=== PATIENT | female | born 1990 | race Caucasian/White ===

== ENCOUNTER 2020-05-31 16:37 | Emergency (ER) | payer OTHER ==
[~2020-05-31] VITALS: Ht 154.9 cm; Wt 86.2 kg
[2020-05-31 16:43] VITALS: BP_SYST 128
--- NOTE | 2020-05-31 17:20 | NUR ---
Patient to ER bed 5 to gown for evaluation. Side rails up. Report given to SALONI VOGT.
--- NOTE | 2020-05-31 17:22 | NUR ---
Patient presented to ER C/O shoulder pain. Patient A&Ox4, ambulatory, afebrile, skin pink & warm, pain 8/, denies N/V/D. Patient states she has left shoulder pain x3 weeks.
--- NOTE | 2020-05-31 17:25 | NUR ---
ER Dr. BOWIE at bedside examining patient.
[2020-05-31 18:00] VITALS: BP_SYST 129
--- NOTE | 2020-05-31 18:00 | NUR ---
Patient given written and verbal discharge instructions and verbalizes understanding. ER MD discussed with patient the results and treatment provided. Patient in stable condition. ID arm band removed. Rx of ROBAXIN & MOTRIN given. Patient educated on pain management and to follow up with PMD. Pain Scale 3/10. Opportunity for questions provided and answered. Medication side effect fact sheet provided.
== END 2020-05-31 18:00 | disposition home or self-care (01) ==
LOC: SED 16:37
DX: M54.12 Radiculopathy, cervical region (principal); M25.512 Pain in left shoulder
CPT/HCPCS: 73030; 99283

== ENCOUNTER 2020-09-27 18:28 | Emergency (ER) | payer OTHER ==
[~2020-09-27] VITALS: Ht 160 cm; Wt 78.0 kg
[2020-09-27 18:37] VITALS: BP_SYST 147
[2020-09-27] MEDS: NACL 0.9% 1,000 ML IV ONE (19:50)
[2020-09-27] MEDS: METOCLOPRAMIDE HCL 10 MG/2 ML VIAL IVP ONE (19:50)
[2020-09-27] MEDS: DIPHENHYDRAMINE INJ 50 MG/ML VIAL IVP ONE (19:50)
[2020-09-27 21:14] VITALS: BP_SYST 120
== END 2020-09-27 21:14 | disposition home or self-care (01) ==
LOC: SED 18:28
DX: G43.901 Migraine, unspecified, not intractable, with status migrainosus (principal)
CPT/HCPCS: 96361; 96374; 96375; 99284; J7030